=== PATIENT | female | born 1955 | race Caucasian/White ===

== ENCOUNTER 2020-04-12 12:15 | Emergency (ER) | payer OTHER, BC, SELFPAY ==
--- NOTE | ~2020-04-12 | XR_ITS ---
EXAMINATION: XR knee RT min 4V DATE: 04/12/2020 14:54 INDICATION: Right knee pain. TECHNIQUE: 4 views of right knee were obtained. COMPARISON: None. FINDINGS: Bone alignment is normal. No fracture. There is mild tricompartmental osteoarthritis. No kn ee joint effusion. IMPRESSION: 1. Mild right knee osteoarthritis. Reviewed, dictated and finalized at location A.
--- NOTE | ~2020-04-12 | XR_ITS ---
EXAMINATION: XR ribs LT 2V w CXR 2V DATE: 04/12/2020 14:55 INDICATION: Left anterior rib pain. Fall. TECHNIQUE: Frontal and lateral views of the chest and 3 views of the left ribs were obtained. COMPARISON: Chest single view 04/14/2009, CT abdomen and pelvis FINDINGS: CHEST TWO VIEWS: There is chronic mild scarring at the lung apices. No pleural effusion or pneumothor ax. The heart size is normal. Surgical clips in the right upper quadrant are likely from cholecystect risa. LEFT RIBS: There is no rib fracture. IMPRESSION: 1. No rib fracture. 2. Chronic mild scarring at the lung apices. Reviewed, dictated and finalized at location A.
--- NOTE | ~2020-04-12 | XR_ITS ---
XR shoulder LT min 2V 04/12/2020 14:55 Indication: Left shoulder pain after fall Procedure: 4 views left shoulder Comparison: No prior studies for comparison. Findings: No fracture, subluxation or dislocation. Anatomic alignment. Visualized lung is unremarkabl e. No soft tissue abnormality. Impression: 1: No acute bone or joint abnormality. Reviewed, dictated and finalized at location B. Impression: 1: No acute bone or joint abnormality.
[2020-04-12 12:40] VITALS: BP 142/70; PULSE 75; RESP 18; TEMP 36.6; O2SAT 98
--- NOTE | 2020-04-12 15:05 | ED.FALL ---
HPI - Fall General Chief Complaint: Fall Stated Complaint: fall, rib pain Time Seen by Provider: 04/12/20 13:11 Source: patient Mode of arrival: ambulatory Limitations: no limitations History of Present Illness HPI Narrative: This is a 64-year-old female that presents the emergency department after a fall today. Reports she slipped and fell forward. Reports landing on the right knee. Reports catching herself with her left arm. Reports she has had pain in the right knee and left shoulder. Also reports left-sided rib pain. Denies hitting her head, loss of consciousness, weakness or numbness. Related Data Home Medications Medication Instructions Recorded Confirmed losartan 04/12/20 omeprazole 04/12/20 paroxetine HCl mg PO 04/12/20 Allergies Allergy/AdvReac Type Severity Reaction Status Date / Time sumatriptan Allergy Mild CHEST Verified 04/12/20 12:46 HEAVINESS Penicillins Allergy Unknown HIVES Verified 04/12/20 12:46 Review of Systems Review of Systems: Narrative: CONSTITUTIONAL: Denies fever CARDIOVASCULAR: Reports chest pain RESPIRATORY: Denies dyspnea. MUSCULOSKELETAL: Reports back pain, joint pain, and myalgia. NEUROLOGIC: Denies numbness, or weakness. All systems reviewed & are unremarkable except as noted in HPI and below PMFSH Past Medical History Medical History (Updated 04/12/20 @ 15:26 by Janet Philip PA-C) History of anxiety History of gastroesophageal reflux (GERD) History of hypertension Exam Narrative: Exam Narrative: GENERAL: Well-appearing, well-nourished, and in no acute distress. HEAD: Normocephalic, atraumatic. EYES: PERRLA and EOMI. ENT: Nares clear, no rhinorrhea or epistaxis. Mucous membranes moist. Oropharynx without tonsillar hypertrophy exudate or other lesions. Bilateral TMs pearly duran non-bulging NECK: Supple. No adenopathy or masses. No midline cervical spine tenderness CHEST: Clear to auscultation. No respiratory distress. No wheezes rales or rhonchi. Tender palpation of the left anterior, lower chest wall HEART: Regular rate and rhythm. No murmur heard. Normal peripheral pulses. BACK: No midline thoracic or lumbar spine tenderness EXTREMITIES: Normal range of motion. No edema or obvious deformity. SKIN: Warm, dry, no rash. NEURO: No focal deficits. Alert and oriented x3. Cranial nerves II through XII grossly intact PSYCH: Normal mood and affect Course Vital Signs Vital signs: Vital Signs Temperature 97.9 F 04/12/20 12:40 Pulse Rate 75 04/12/20 12:40 Respiratory Rate 18 04/12/20 12:40 Blood Pressure 142/70 H 04/12/20 12:40 Pulse Oximetry 98 04/12/20 12:40 Temperature 97.9 F 04/12/20 12:40 Pulse Rate 75 04/12/20 12:40 Respiratory Rate 18 04/12/20 12:40 Blood Pressure 142/70 H 04/12/20 12:40 Pulse Oximetry 98 04/12/20 12:40 MDM - Fall MDM Narrative Medical decision making narrative: Patient presents the emergency department after a ground-level fall today. Reports pain in the left shoulder and ribs. Also reports pain in the right knee. Right knee x-rays without acute findings. Left shoulder x-ray without acute findings. Left rib/chest XR without acute findings. Patient updated on case findings. She was instructed to rest, ice and take [id number] pain medication as needed. She is to follow-up with primary care doctor. She was given warnings to return to the ER Imaging Data Radiologist's impression: ITS Impressions Shoulder X-Ray 04/12/20 14:56 Impression: 1: No acute bone or joint abnormality. Knee X-Ray 04/12/20 15:03 IMPRESSION: 1. Mild right knee osteoarthritis. Ribs w/Chest X-Ray 04/12/20 15:04 IMPRESSION: 1. No rib fracture. 2. Chronic mild scarring at the lung apices. Critical Care Time Critical Care Time Critical Care Time: No Discharge Plan Discharge Clinical Impression: Fall from ground level, Acute pain of left shoulder, Rib pain on left side, Ac
[2020-04-12 15:48] VITALS: BP 135/72; PULSE 67; RESP 17; O2SAT 100
== END 2020-04-12 15:50 | disposition home or self-care (01) ==
PROVIDERS: Emergency Provider Emergency Medicine; PCP Internal Medicine
DX: M25.512 Pain in left shoulder (principal); M25.561 Pain in right knee; R07.81 Pleurodynia; W01.0XXA Fall on same level from slipping, tripping and stumbling without subsequent striking against object, initial encounter; F41.9 Anxiety disorder, unspecified; K21.9 Gastro-esophageal reflux disease without esophagitis; I10 Essential (primary) hypertension
CPT/HCPCS: 71046; 71100; 73030; 73564; 99284

== ENCOUNTER → 2020-04-22 14:09 | Outpatient (CLI) | payer BC, SELFPAY ==
--- NOTE | ~2020-04-22 | XR_ITS ---
EXAMINATION: XR lumbar spine min 4V EXAM DATE: 04/22/2020 14:33 INDICATION: Pain across low back after falling on 04/12. TECHNIQUE: Lumber spine frontal, lateral, bilateral oblique projections. Coned down frontal and lat eral L5-S1 lumbar projections for interpretation. There is no prior study for comparison. FINDINGS: There are no acute fractures identified. There is no spondylolysis. There is moderate disc disease L5-S1. Mild to moderate lower lumbar spondylosis. The vertebral body and disc heights are ot herwise well maintained. The vertebral bodies are aligned in the AP dimension. There are cholecystect risa clips. Paraspinal soft tissue is unremarkable. Sacrum, sacroiliac joints, sacral arcuate lines ar e intact. IMPRESSION: 1. No acute lumbar findings. 2. L5-S1 moderate disc disease. 3. Mild lower lumbar facet arthropathy. Reviewed, dictated and finalized at location A.
== END ==
PROVIDERS: PCP Family Medicine; Visit Provider Family Medicine
DX: M54.9 Dorsalgia, unspecified (principal); M51.9 Unspecified thoracic, thoracolumbar and lumbosacral intervertebral disc disorder; M12.88 Other specific arthropathies, not elsewhere classified, other specified site
CPT/HCPCS: 72110

== ENCOUNTER 2021-08-22 16:08 | Outpatient (CLI) | payer MEDICARE, SELFPAY ==
[2021-08-22 17:14] LABS: SARS-CoV-2 RNA PCR Negative (Negative)
== END 2021-08-22 16:09 | disposition home or self-care (01) ==
LOC: CHSLAB 16:13
PROVIDERS: PCP Internal Medicine; Visit Provider Internal Medicine
DX: J06.9 Acute upper respiratory infection, unspecified (principal); Z20.822 Contact with and (suspected) exposure to COVID-19
CPT/HCPCS: C9803; U0003; U0005

== ENCOUNTER 2021-09-09 07:12 | Outpatient (CLI) | payer MEDICARE, SELFPAY ==
--- NOTE | ~2021-09-09 | XR_ITS ---
EXAMINATION: XR chest 2V DATE: 09/09/2021 07:41 INDICATION: Cough and hypertension TECHNIQUE: PA and lateral views of the chest are obtained. COMPARISON: 04/12/2020 FINDINGS: The lungs are free of acute opacities. There is no pleural effusion or pneumothorax. The ca rdiomediastinal silhouette is normal. There is mild thoracic spondylosis. Surgical clips in the right upper quadrant are likely from prior cholecystectomy. IMPRESSION: 1. No acute cardiopulmonary abnormality. Reviewed, dictated and finalized at location A. RVISOR INSTRUMENT REPAIR
[2021-09-09 07:27] LABS: Basophils Absolute Auto 0.06 K/mm3 (0.00-0.10); Basophils Percent Auto 0.9 % (0.0-1.0); Eosinophils Percent Auto 6.3 % (1.0-6.0); Hematocrit 37.3 % (35.0-42.0); Hemoglobin 12.9 g/dL (11.7-13.8); Immature Granulocyte Absolute 0.03 K/mm3 (0.00-0.00); Immature Granulocyte Percent A 0.5 % (0.0-0.0); Lymphocytes Absolute Auto 1.44 K/mm3 (1.10-4.50); Lymphocytes Percent Auto 22.6 % (18.0-42.0); Mean Corpuscular HGB Conc 34.6 g/dL (32.0-36.0); Mean Corpuscular Hemoglobin 28.7 pg (27.0-31.0); Mean Corpuscular Volume 83.1 fL (78.0-102.0); Mean Platelet Volume 9.5 fl (9.2-11.8); Monocytes Absolute Auto 0.42 K/mm3 (0.10-0.90); Monocytes Percent Auto 6.6 % (2.0-11.0); Neutrophils Percent Auto 63.1 % (50.0-70.0); Platelet Count Result 275 K/mm3 (150-420); Red Blood Count 4.49 M/mm3 (4.20-5.40); Red Cell Distribution Width 11.9 % (11.6-14.4); White Blood Count 6.4 K/mm3 (4.8-10.8)
[2021-09-09 08:21] LABS: Alanine Aminotransferase 32 U/L (14-59); Albumin Level 3.6 g/dL (3.4-5.0); Alkaline Phosphatase 93 U/L (46-116); Anion Gap 9 mmol/L (8-16); Aspartate Amino Transferase 16 U/L (15-37); Bilirubin,Total 0.4 mg/dL (0.00-1.00); Blood Urea Nitrogen 25 mg/dL (7-18); Calcium 8.7 mg/dL (8.5-10.1); Carbon Dioxide 28 mmol/L (21-32); Chloride 106 mmol/L (98-108); Estimated Glomerular Filt Rate > 60; Glucose 110 mg/dL (70-99); Osmolality Calculated 301 mOsm/kg (285-295); Potassium 4.2 mmol/L (3.5-5.1); Sodium 143 mmol/L (136-145); Total Protein 6.8 g/dL (6.4-8.2)
== END 2021-09-09 07:13 | disposition home or self-care (01) ==
PROVIDERS: PCP Internal Medicine; Visit Provider Internal Medicine
DX: R05.9 Cough, unspecified (principal); I10 Essential (primary) hypertension
CPT/HCPCS: 36415; 71046; 80053; 85025

== ENCOUNTER 2022-08-14 09:45 | Outpatient (RCR) | payer MEDICARE, SELFPAY ==
--- NOTE | 2022-07-23 16:08 | PTOPEVAL1 ---
Assessment and note entered by Elizabeth Chopra, PT Evaluation Information Assessment Status Evaluation Diagnosis BPPV/ vestibular rehab Onset December 2021 Reported Pain Level Pain Score 0: Self Report Assessment PT Clinical Summary Carole has the diagnosis of BPPV. Her medical history includes vestibular risk factors of: seasonal allergies, hearing loss, fluid ears, excessive ear wax, HTN med; With the evaluation, Dizziness Handicap Index score is 16/100; reports lightheaded and dizzy with sitting to standing and then walking and standing and reach up; Fernanda Castro pike test to the L caused her visual changes. There was not any problems with eye tracking. Her BP did change with positional changes, it increased with supine 132/58 and sitting 107/62 and standing 110/56. Skilled PT services are indicated for vestibular therapy, with treatment initiated for BPPV and further testing as indicated with treatment progression. Plan of Care Interventions Neuro Re-education,Patient/Caregiver Education, Therapeutic Activities,Therapeutic Exercise PT Services Indicated Yes Treatment Frequency and 0-2x/wk for 5 weeks--pt will be out of town on Duration vacation this time frame These treatments will address the objective and functional deficits as defined above. The patient will be advanced safely and appropriately in order for the patient to progress towards his/her prior level of function. Additional exercises will be introduced and as well as a comprehensive home exercise program upon discharge, if needed, ?to ensure carryover of functional gains achieved in the clinic. This treatment plan has been reviewed and agreement upon by the patient.
--- NOTE | 2022-08-16 14:01 | PCPTNOTE ---
Patient called & cancelled scheduled appointment this date due to no vestibular issues today
--- NOTE | 2022-08-21 10:09 | PCPTNOTE ---
Patient called & cancelled scheduled appointment this date due to no vestibular issues today.
--- NOTE | 2022-08-29 10:39 | PCPTNOTE ---
PHYSICAL THERAPY DISCHARGE 08-29-22 Attending Provider: Jamey Diaz MD Patient:Carole Nicholson Date of :1955 Craole has received 4 PT sessions, from July 23 to August 14, for the diagnosis of BPPV. She called and canceled 2 appointments. She called and stated that she was better and did not need any additional therapy, therefore she will be discharged at this time. The goals were not addressed. Thank you for referring this patient to [facility].
== END 2022-08-29 11:34 | disposition home or self-care (01) ==
LOC: ANHPT 09:45
PROVIDERS: PCP Internal Medicine; Visit Provider Otolaryngology
DX: H81.10 Benign paroxysmal vertigo, unspecified ear (principal)
CPT/HCPCS: 97161; 97530; 99199

== ENCOUNTER 2023-01-30 07:59 | Outpatient (CLI) | payer MEDICARE, SELFPAY ==
[2023-01-30 08:13] LABS: Basophils Absolute Auto 0.05 K/mm3 (0.00-0.10); Basophils Percent Auto 0.9 % (0.0-1.0); Eosinophils Absolute Auto 0.15 K/mm3 (0.02-0.50); Eosinophils Percent Auto 2.8 % (1.0-6.0); Hematocrit 37.7 % (35.0-42.0); Hemoglobin 12.7 g/dL (11.7-13.8); Immature Granulocyte Absolute 0.01 K/mm3 (0.00-0.00); Immature Granulocyte Percent A 0.2 % (0.0-0.0); Lymphocytes Absolute Auto 1.09 K/mm3 (1.10-4.50); Lymphocytes Percent Auto 20.1 % (18.0-42.0); Mean Corpuscular HGB Conc 33.7 g/dL (32.0-36.0); Mean Corpuscular Volume 86.1 fL (78.0-102.0); Mean Platelet Volume 9.5 fl (9.2-11.8); Monocytes Absolute Auto 0.48 K/mm3 (0.10-0.90); Monocytes Percent Auto 8.9 % (2.0-11.0); Neutrophils Absolute Auto 3.6 K/mm3 (1.7-7.2); Neutrophils Percent Auto 67.1 % (50.0-70.0); Platelet Count Result 261 K/mm3 (150-420); Red Blood Count 4.38 M/mm3 (4.20-5.40); Red Cell Distribution Width 11.9 % (11.6-14.4); White Blood Count 5.4 K/mm3 (4.8-10.8)
[2023-01-30 08:39] LABS: Alanine Aminotransferase 37 U/L (14-59); Albumin Level 3.8 g/dL (3.4-5.0); Alkaline Phosphatase 77 U/L (46-116); Anion Gap 8 mmol/L (8-16); Aspartate Amino Transferase 21 U/L (15-37); Bilirubin,Total 0.6 mg/dL (0.00-1.00); Blood Urea Nitrogen 18 mg/dL (7-18); CRP 0.7 mg/dL (0.0-0.9); Calcium 8.7 mg/dL (8.5-10.1); Carbon Dioxide 28 mmol/L (21-32); Chloride 106 mmol/L (98-108); Estimated Glomerular Filt Rate 56; Glucose 108 mg/dL (70-99); Osmolality Calculated 296 mOsm/kg (285-295); Potassium 4.2 mmol/L (3.5-5.1); Sodium 142 mmol/L (136-145); Total Protein 6.6 g/dL (6.4-8.2)
== END 2023-01-30 08:00 | disposition home or self-care (01) ==
LOC: CHSLAB 08:02
PROVIDERS: PCP Internal Medicine; Visit Provider Internal Medicine
DX: U07.1 COVID-19 (principal); J06.9 Acute upper respiratory infection, unspecified
CPT/HCPCS: 36415; 80053; 85025; 86140

== ENCOUNTER 2024-02-17 14:52 | Outpatient (CLI) | payer MEDICARE, SELFPAY ==
--- NOTE | ~2024-02-17 | XR_ITS ---
XR chest 2V DATE: 02/17/2024 15:22 INDICATION: Dyspnea. Hypertension. Abnormal EKG. TECHNIQUE: 2 views COMPARISON: 09/09/2021 2 view chest FINDINGS: Normal heart size. No hilar or mediastinal enlargement. No pulmonary infiltrate or consolid ation, pleural effusion or pulmonary vascular congestion or pneumothorax is detected. Osteopenia. Status post cholecystectomy. IMPRESSION: No active cardiopulmonary disease Osteopenia Status post cholecystectomy Reviewed, dictated and finalized at location B.
[2024-02-17 15:11] LABS: Basophils Absolute Auto 0.04 K/mm3 (0.00-0.10); Basophils Percent Auto 0.5 % (0.0-1.0); Eosinophils Absolute Auto 0.23 K/mm3 (0.02-0.50); Eosinophils Percent Auto 2.7 % (1.0-6.0); Hematocrit 39.5 % (35.0-42.0); Hemoglobin 13.2 g/dL (11.7-13.8); Immature Granulocyte Absolute 0.04 K/mm3 (0.00-0.00); Immature Granulocyte Percent A 0.5 % (0.0-0.0); Lymphocytes Absolute Auto 1.88 K/mm3 (1.10-4.50); Lymphocytes Percent Auto 22.3 % (18.0-42.0); Mean Corpuscular HGB Conc 33.4 g/dL (32-36); Mean Corpuscular Hemoglobin 28.2 pg (27.0-31.0); Mean Corpuscular Volume 84.4 fL (78.0-102.0); Mean Platelet Volume 9.1 fl (9.2-11.8); Monocytes Absolute Auto 0.57 K/mm3 (0.10-0.90); Monocytes Percent Auto 6.8 % (2.0-11.0); Neutrophils Absolute Auto 5.66 K/mm3 (1.70-7.20); Neutrophils Percent Auto 67.2 % (50.0-70.0); Platelet Count Result 276 K/mm3 (150-420); Red Blood Count 4.68 M/mm3 (4.20-5.40); Red Cell Distribution Width 11.9 % (11.6-14.4); White Blood Count 8.4 K/mm3 (4.8-10.8)
[2024-02-17 16:46] LABS: Appearance Urine Clear (Clear); Bilirubin Urine Negative (Negative); Blood Urine 1+ (Negative); Color Urine Yellow (Yellow); Glucose Urine UA Negative (Negative); Ketones Urine Negative (Negative); Leukocyte Esterase Ur Negative (Negative); Nitrate Urine Negative (Negative); Protein Urine Negative (Negative); Specific Grav Ur >= 1.030 (1.010-1.020); Urobilinogen Urine 0.2 mg/dL (0.2-1.0)
[2024-02-17 17:07] LABS: Add Urine Microscopic? YES; Squamous Epithelial Cell Urine Few /hpf (Few); WBC Urine None seen /hpf (0-3)
[2024-02-17 17:08] LABS: Bacteria Urine Trace /hpf
[2024-02-17 23:46] LABS: Alanine Aminotransferase 32 U/L (14-59); Albumin Level 3.9 g/dL (3.4-5.0); Alkaline Phosphatase 80 U/L (46-116); Anion Gap 14 mmol/L (4-12); Aspartate Amino Transferase 20 U/L (15-37); Blood Urea Nitrogen 28 mg/dL (7-18); Calcium 8.8 mg/dL (8.5-10.1); Carbon Dioxide 22 mmol/L (21-32); Chloride 102 mmol/L (98-108); Cholesterol 229 mg/dL (0-200); Estimated Glomerular Filt Rate 53; Free T3 2.36 pg/mL (2.18-3.98); Free T4 Free Thyroxine 0.81 ng/dL (0.76-1.46); Glucose 98 mg/dL (70-99); HDL Direct 53 mg/dL (40-60); LDL Cholesterol Calculated 142 mg/dL (<130); NT Pro B Type Natriuretic Pept 180 pg/mL (0-125); Osmolality Calculated 291 mOsm/kg (285-295); Potassium 4.2 mmol/L (3.5-5.1); Sodium 138 mmol/L (136-145); Thyroid Stimulating Hormone 2.73 uIU/mL (0.36-3.74); Total Protein 7.1 g/dL (6.4-8.2); Triglycerides 170 mg/dL (0-150)
== END 2024-02-17 14:53 | disposition home or self-care (01) ==
LOC: CHSLAB 14:56
PROVIDERS: PCP Internal Medicine; Visit Provider Internal Medicine
DX: I10 Essential (primary) hypertension (principal); R94.31 Abnormal electrocardiogram [ECG] [EKG]; R06.00 Dyspnea, unspecified; M85.88 Other specified disorders of bone density and structure, other site; Z90.49 Acquired absence of other specified parts of digestive tract
CPT/HCPCS: 36415; 71046; 80053; 80061; 81001; 83735; 83880; 84439; 84443; 84481; 85025

== ENCOUNTER 2024-02-20 15:39 | Outpatient (CLI) | payer MEDICARE, SELFPAY ==
--- NOTE | 2024-02-20 16:20 | ECHO_ITS ---
Patient Info Name: Carole Nicholson Age: 68 years : 1955 Gender: Female Ht: 68 in Wt: 219 lbs BSA: 2.22 m2 HR: 74 bpm BP: 123 / 88 mmHg Technical Quality: Good Exam Date: 02/20/2024 3:41 PM Exam Location: Echo Lab Patient Status: Outpatient Admit Date: 02/20/2024 Staff Ordering Physician: Jose Angel Khalil MD Injury Prevention Coordinator: Edgard Obrien RDCS Attending Provider: Jose Angel Khalil MD Exam Type: CA echo doppler color flow Study Info Indications - dyspnea - htn Complete two-dimensional, color flow and Doppler transthoracic echocardiogram is performed. Summary 1. Complete two-dimensional, color flow and Doppler transthoracic echocardiogram is performed. 2. Left ventricular chamber dimension is normal. 3. Left ventricular septal wall motion is abnormal with septal motion related to bundle branch block. 4. Left ventricular systolic function is mildly globally reduced, estimated at 45-50%. 5. The left ventricular diastolic function is grade I diastolic dysfunction. 6. E/e' 12 is mildly elevated. 7. Left atrial chamber dimension is mildly enlarged. 8. There is mild mitral valve regurgitation. 9. There is trace tricuspid valve regurgitation. 10. No pulmonary hypertension, estimated pulmonary arterial systolic pressure is 39 mmHg. Left Ventricle E/e' 12 is mildly elevated. Left ventricular systolic function is mildly globally reduced, estimated at 45-50%. Left ventricular chamber dimension is normal. Left ventricular septal wall motion is abnormal with septal motion related to bundle branch block. The left ventricular diastolic function is grade I diastolic dysfunction. Right Ventricle Right ventricular chamber dimension is normal. Right ventricular systolic function is normal. Left Atria Left atrial chamber dimension is mildly enlarged. Right Atria Right atrial chamber dimension is normal. Aortic Valve The aortic valve is trileaflet. There is no aortic valve stenosis. There is no aortic valve regurgitation. Pulmonic Valve There is no pulmonic regurgitation. Mitral Valve There is no mitral valve stenosis. There is mild mitral valve regurgitation. Tricuspid Valve There is trace tricuspid valve regurgitation. No pulmonary hypertension, estimated pulmonary arterial systolic pressure is 39 mmHg. Pericardium/Pleural There is no pericardial effusion. Inferior Vena Cava Normal inferior vena cava with >50% collapse upon inspiration consistent with normal right atrial pressure, 5 mmHg. Aorta The aortic root size at the sinus of Valsalva is normal. Left Ventricular Outflow Tract Name Value Normal LVOT 2D LVOT Diameter 1.8 cm LVOT Doppler LVOT Peak Velocity 123 cm/s LVOT Peak Gradient 6 mmHg LVOT Mean Gradient 3 mmHg LVOT VTI 22 cm LVOT VTI/AV VTI Ratio 0.5 LVOT Stroke Volume 55 ml Pulmonic Valve Name Value Normal PV Doppler --------
== END 2024-02-20 15:40 | disposition home or self-care (01) ==
LOC: CHSIMG 15:43
PROVIDERS: PCP Internal Medicine; Visit Provider Internal Medicine
DX: I10 Essential (primary) hypertension (principal); R06.00 Dyspnea, unspecified; I34.0 Nonrheumatic mitral (valve) insufficiency
CPT/HCPCS: 93306

== ENCOUNTER 2024-04-09 09:00 | Outpatient (CLI) | payer MEDICARE, SELFPAY ==
--- NOTE | 2024-04-16 12:16 | WPDSLEEPSTUD ---
Sleep Study Date of Study: 04/09/24 Ordering Provider: Sony Canales DO Interpreting Physician: Linda Ramos MD Sleep Study Type: Split Polysomnogram Height: 1.7 m Weight: 99.337 kg Body Mass Index: 34.2 Neck Circumference (inches): 15 Holmen: 7 Reason for Sleep Study Snoring, left bundle branch block, fatigue Sleep History Carole Nicholson is a 68 years of snoring which is getting worse. Her mobile battery technician referred her for a sleep study for poor sleep, fatigue, and new LBBB. She has hypertension, history of anxiety. She had a sleep study years ago without sleep apne ahoever she has a history of restless legs. She never awakens from sleep short of breath. She occasional wakes at night with heartburn, belching or coughing.??She constantly snores loudly enough that others complain. She occasionally has trouble sleeping when she has a cold. She never wakes up gasping for breath during the night. She occasionally has breathing problems at night. She occasionally sweats excessively at night. She never notices her heart pounding or beating irregularly during the night. She frequently falls asleep during the day. She rarely falls asleep involuntarily, however never falls asleep while driving. She never experiences loss of muscle tone with strong emotion. She never feels paralyzed on waking or falling asleep. She occasionally experiences vivid dreams upon waking or falling asleep. She never feels afraid of going to sleep. She occasionally has nightmares. She occasionally recalls her dreams. She rarely has thoughts racing through her mind. She occasionally feels sad or depressed. She occasionally feels anxiety. She never notices parts of her body jerk. She occasionally kicks during the night. She occasionally feels aching feelings in her legs. She rarely feels leg pain at night. She occasionally has morning jaw pain, and never grinds her teeth at night. She never feels bothered by pain during the day, is never awakened by pain during the night. She occasionally wakes up feeling stiff in the morning, rarely wakes feeling sore or achy in the morning. She rarely awakens with pain in her neck, spine, or joints. Normal bedtime is between 9:30 p.m. and 10:00 p.m., falling asleep within minutes, waking twice at most at night, usually less, rolls over and repositions a pillow and returns to sleep within 10 minutes. Her normal wake time is between 7:30 a.m. and 8:00 a.m.. She keeps the same schedule on weekends. She estimates getting between 8 and 10 hours of sleep most nights. She takes naps in the afternoon or evening and her need for naps started recently. A short nap lasting 10-15 minutes is not refreshing. She occasionally awakens feeling refreshed. She frequently has daytime sleepiness. She occasionally has memory or concentration problems. She feels better in the afternoon compared to other times of day. Habits:??Tobacco: Former smoker, quit 25 years ago Caffeine: 2 cups of half calf coffee daily Alcohol: none Recreational substances: none [facility] Past Medical History Medical History (Updated 04/16/24 @ 13:09 by Linda Ramos MD) Anxiety disorder Essential (primary) hypertension FH: cholecystectomy GERD (gastroesophageal reflux disease) History of anxiety History of gastroesophageal reflux (GERD) History of hypertension Hyperlipidemia New onset left bundle branch block (LBBB) Restless legs syndrome Tonsillectomy planned Family History Family History Father Hypertension Heart disease Mother Hypertension Thyroid disorder AMD (age related macular degeneration) Sibling Hypertension Sibling Hypertension Hyperlipidemia Diabetes mellitus Grandparent Myocardial infarction Grandparent CHF (congestive heart failure) Social History Social History (Updated 04/16/24 @ 12:32 by Linda Ramos MD) Smok
[2024-04-16 13:00] VITALS: BMI 34.2
== END 2024-04-10 07:53 | disposition home or self-care (01) ==
LOC: ANHCSM 09:01
PROVIDERS: PCP Internal Medicine; Visit Provider Internal Medicine Cardiovascular Disease
DX: G47.33 Obstructive sleep apnea (adult) (pediatric) (principal); G47.10 Hypersomnia, unspecified; G25.81 Restless legs syndrome; I10 Essential (primary) hypertension; Z68.34 Body mass index [BMI] 34.0-34.9, adult
CPT/HCPCS: 95811

== ENCOUNTER 2024-05-20 08:21 | Outpatient (CLI) | payer MEDICARE, SELFPAY ==
--- NOTE | ~2024-05-20 | NM_ITS ---
EXAMINATION: NM josé stress w perfusion DATE: 05/20/2024 10:53 INDICATION: Chest pain. TECHNIQUE: Rest images were obtained following intravenous administration of 10.2 mCi Tc99m tetrofosm in (Myoview). The patient was infused intravenously with Lexiscan (regadenoson). Then, 32 mCi Tc99m t etrofosmin (Myoview) was administered intravenously, and stress images were obtained. Data was recons tructed into short axis and horizontal and vertical long axis SPECT images. Gated SPECT images were a lso obtained. COMPARISON: Myocardial perfusion imaging 04/15/2009 FINDINGS: There is no definite reversible or fixed perfusion abnormality to suggest ischemia or infar ction. There is no segmental wall motion abnormality. Left ventricular ejection fraction measures 5 1%. IMPRESSION: 1. No definite ischemia or infarct. 2. Normal left ventricular ejection fraction measuring 51%. Reviewed, dictated and finalized at location A.
--- NOTE | 2024-05-20 08:31 | EST_ITS ---
Patient Info Name: Carole Nicholson Age: 68 years : 1955 Gender: Female Ht: 67 in Wt: 220 lbs BSA: 2.21 m2 HR: 66 bpm BP: 143 / 86 mmHg Heart Rhythm: Left Bundle Branch Block Exam Date: 05/20/2024 9:38 AM Exam Location: Echo Lab Patient Status: Outpatient Admit Date: 05/20/2024 Staff Ordering Physician: Sony Canales DO Attending Provider: Sony Canales DO Exercise Technologist: Milena Grewal CT Exercise Physician: Sony Canales DO Exam Type: CA stress josé w NM Study Info Indications R07.89 - Other chest pain A regadenoson stress test was performed. Summary 1. 1. Inconclusive lexiscan stress test for ischemic ST changes by ECG criteria due to baseline LBBB. 2. 2. Stable hemodynamics throughout the test. 3. 3. Nuclear scan to follow and will be reported separately. Please correlate with it. 4. 4. Patient informed of the above results. Protocol: Lexiscan Stress ECG Details Stage: REST Duration (min): 0 min : 56 sec HR (bpm): 66 SBP (mmHg): 143 DBP (mmHg): 86 Stage: REST Duration (min): 6 min : 8 sec HR (bpm): 67 SBP (mmHg): 143 DBP (mmHg): 86 Stage: STAGE 1 Duration (min): 1 min : 0 sec HR (bpm): 73 SBP (mmHg): 134 DBP (mmHg): 81 Stage: RECOVERY Duration (min): 1 min : 0 sec HR (bpm): 82 SBP (mmHg): 134 DBP (mmHg): 81 Stage: RECOVERY Duration (min): 2 min : 0 sec HR (bpm): 82 SBP (mmHg): 134 DBP (mmHg): 81 Stage: RECOVERY Duration (min): 3 min : 0 sec HR (bpm): 84 SBP (mmHg): 128 DBP (mmHg): 73 Stage: RECOVERY Duration (min): 3 min : 10 sec HR (bpm): 84 SBP (mmHg): 128 DBP (mmHg): 73 Rest HR: 67 bpm Peak HR: 84 bpm Rest Sys BP: 143 mmHg Peak Sys BP: 134 mmHg Max Pred HR: 153 bpm % Max Pred HR: 55 % Target HR: 130 bpm Max RPP: 11,256 bpm*mmHg Termination Reason: Completed protocol Cardiac Symptoms: Shortness of breath, Stomach discomfort Total Time: 1 min : 0 sec Rest Kil[place]ore BP: 86 mmHg Peak [place] BP: 81 mmHg Total Dose: 0.4 mg Resting ECG Sinus rhythm, LBBB. Stress ECG No ST changes. Arrhythmias None. Report Signatures
== END 2024-05-20 08:22 | disposition home or self-care (01) ==
LOC: ANHCARD 08:24
PROVIDERS: PCP Internal Medicine; Visit Provider Internal Medicine Cardiovascular Disease
DX: R07.9 Chest pain, unspecified (principal); R06.02 Shortness of breath
CPT/HCPCS: 78452; 93017; A9502; J2785

== ENCOUNTER 2024-06-22 13:41 | Outpatient (CLI) | payer MEDICARE, SELFPAY | END 2024-06-22 13:42 | disposition home or self-care (01) | LOC: ANHAUDIO 13:41 | PROVIDERS: PCP Internal Medicine; Visit Provider Otolaryngology | DX: H90.6 Mixed conductive and sensorineural hearing loss, bilateral (principal); H93.11 Tinnitus, right ear; H69.91 Unspecified Eustachian tube disorder, right ear; H81.10 Benign paroxysmal vertigo, unspecified ear | CPT/HCPCS: 92557; 92567 ==